=== PATIENT | female | born 1960 | race Two or more races ===

== ENCOUNTER 2023-07-10 12:54 | Emergency (ER) | payer OTHER ==
[~2023-07-10] VITALS: Ht 175.3 cm; Wt 142.9 kg
[~2023-07-10 12:54] MED LIST: DIAZIDE; LEVOXYL175 MCG PO
[2023-07-10] MEDS ORDERED: IRBESARTAN150 MG PO (13:23)
[2023-07-10] MEDS ORDERED: SYNTHROID50 MCG PO (13:23)
[2023-07-10] MEDS ORDERED: MAXITROL EYE DRO5 ML OP (13:46)
[2023-07-10] MEDS ORDERED: ZYRTEC10 MG PO (13:46)
== END 2023-07-10 14:10 | disposition home or self-care (01) ==
LOC: ER 12:54
DX: S05.31XA Ocular laceration without prolapse or loss of intraocular tissue, right eye, initial encounter (principal); X58.XXXA Exposure to other specified factors, initial encounter; Y93.89 Activity, other specified; Y92.89 Other specified places as the place of occurrence of the external cause; Y99.8 Other external cause status; I10 Essential (primary) hypertension; Z88.5 Allergy status to narcotic agent; Z88.6 Allergy status to analgesic agent

== ENCOUNTER 2023-07-23 09:17 | Outpatient (CLI) | payer OTHER ==
[~2023-07-23 09:17] MED LIST changes: +IRBESARTAN150 MG PO; +MAXITROL EYE DRO5 ML OP; +SYNTHROID50 MCG PO; +ZYRTEC10 MG PO
== END 2023-07-23 09:29 | disposition home or self-care (01) ==
LOC: RAD 09:17
PROVIDERS: ATTEND Internal Medicine Geriatric Medicine
DX: I11.9 Hypertensive heart disease without heart failure (principal); R06.02 Shortness of breath